=== PATIENT | male | born 2000 | race Caucasian/White ===

== ENCOUNTER 2020-04-27 15:43 | Emergency (ER) | payer OTHER ==
[~2020-04-27 15:43] MED LIST: FLEXERIL10 MG PO; LAMISIL AT12 G2 TOP; MOBIC7.5 MG PO; PREDNISONE 20MG20 MG PO
[2020-04-27 18:16] LABS: BASOPHIL 0.5 % (0-2); EOSINOPHIL 2.9 % (0-5); HCT 53.3 % (42.0-52.0); HGB 17.9 g/dl (13.2-18.0); LYMPHOCYTE 24.4 % (15-48); MCH 28.9 pg (25.0-31.0); MCHC 33.6 g/dL (32.0-36.0); MONOCYTE 7.2 % (0-12); MPV 10.8 fL (6.0-9.5); NEUTROPHIL 64.8 % (41-80); NRBC 0; PLT 274 K/uL (150-400); RDW 12.5 % (11.5-14.0); WBC 13.7 K/uL (4.0-10.5)
[2020-04-27 18:33] LABS: BUN/CREAT RATIO (CALC) 15.7 RATIO; CREATININE 0.89 mg/dL (0.67-1.17); POTASSIUM 3.6 mmol/L (3.5-5.1)
== END 2020-04-27 20:13 | disposition home or self-care (01) ==
LOC: FER 15:43
PROVIDERS: Nurse Practitioner Family
DX: R00.2 Palpitations (principal); E86.0 Dehydration; I10 Essential (primary) hypertension
CPT/HCPCS: 36415; 71045; 80048; 85025; 85379; J7030

== ENCOUNTER 2020-11-01 23:30 | Emergency (ER) | payer OTHER | END 2020-11-01 23:56 | disposition left against medical advice (07) | LOC: FER 23:30 | DX: R21 Rash and other nonspecific skin eruption (principal); Z53.21 Procedure and treatment not carried out due to patient leaving prior to being seen by health care provider ==